=== PATIENT | female | born 1990 | race Two or more races ===

== ENCOUNTER 2018-12-26 11:46 | Emergency (ER) | payer MEDICAID ==
[~2018-12-26] VITALS: Ht 167.6 cm; Wt 140.0 kg
[2018-12-26] MEDS ORDERED: ARIPIPRAZOLE 10MG TABLET PO ONE (13:00)
[2018-12-26] MEDS ORDERED: ARIPIPRAZOLE 5MG TABLET PO ONE (13:15)
[2018-12-26 13:56] LABS: BASOPHILS % 0.4 % (0.0-2.0); EOSINOPHILS % 0.8 % (0.0-5.0); HEMATOCRIT. 34.8 % (36.0-48.0); HEMOGLOBIN. 11.3 g/dL (12.0-16.0); LYMPHOCYTES % 30.6 % (20.0-50.0); MEAN CORPUSCULAR HEMOGLOBIN 27.1 pg (28.0-32.0); MEAN CORPUSCULAR VOLUME 83.3 fL (81.0-99.0); MONOCYTES % 3.6 % (2.0-8.0); NEUTROPHILS % 64.6 % (40.0-76.0); PLATELET 266 x1000/uL (130-400); RED BLOOD CELL COUNT 4.18 mill/uL (4.2-5.4); RED CELL DISTRIBUTION WIDTH 17.3 % (11.6-14.6)
[2018-12-26 14:05] LABS: CHLORIDE 107 mEq/L (98-107)
[2018-12-26 14:11] LABS: ETHANOL BLOOD < 10 mg/dL
[2018-12-26 14:45] LABS: CLARITY URINE CLEAR (CLEAR); COLOR URINE YELLOW (YELLOW); KETONES URINE 1+ (NEGATIVE); LEUKOCYTE ESTERASE URINE NEGATIVE (NEGATIVE); NITRITE URINE NEGATIVE (NEGATIVE); OCCULT BLOOD URINE NEGATIVE (NEGATIVE); PH URINE 6.5 (4.5-8.0); PROTEIN URINE NEGATIVE (NEGATIVE); SPECIFIC GRAVITY URINE 1.028 (1.005-1.030); UROBILINOGEN URINE 0.2 E.U./dL (0.2-1.0)
[2018-12-26 15:19] LABS: *COCAINE SCREEN URINE NEGATIVE (NEGATIVE); METHADONE URINE SCREEN NEGATIVE (NEGATIVE); PHENCYCLIDINE URINE SCREEN NEGATIVE (NEGATIVE)
[2018-12-26 15:20] LABS: *AMPHETAMINES SCREEN URINE NEGATIVE (NEGATIVE); *BARBITURATES SCREEN URINE NEGATIVE (NEGATIVE); *BENZODIAZEPINES SCREEN URINE NEGATIVE (NEGATIVE)
[2018-12-26 15:27] LABS: CANNABINOID URINE SCREEN PRESUMTIVE POSITIVE (NEGATIVE); OPIATES URINE SCREEN PRESUMTIVE POSITIVE (NEGATIVE)
[2018-12-27] MEDS ORDERED: ARIPIPRAZOLE 10MG TABLET PO ONE (10:00)
[2018-12-27] MEDS ORDERED: ARIPIPRAZOLE 5MG TABLET PO NR (10:30)
[2018-12-27 13:03] VITALS: BP 129/74
== END 2018-12-27 13:35 | disposition home or self-care (01) ==
LOC: ER 11:46
DX: F32.9 Major depressive disorder, single episode, unspecified (principal); R45.851 Suicidal ideations; F12.10 Cannabis abuse, uncomplicated; Z87.19 Personal history of other diseases of the digestive system; Z88.8 Allergy status to other drugs, medicaments and biological substances; Z88.6 Allergy status to analgesic agent
CPT/HCPCS: 36415; 80165; 80305; 80307; 80320; 80329; 99284; G0480

== ENCOUNTER 2019-01-06 11:08 | Emergency (ER) | payer MEDICAID ==
[~2019-01-06] VITALS: Ht 167.6 cm; Wt 138.0 kg
[2019-01-06] MEDS ORDERED: SODIUM CHLORIDE 0.9% 1,000 ML IV ONE (12:00)
[2019-01-06] MEDS ORDERED: ONDANSETRON HCL 4MG/2ML INJ IV ONE (12:00)
[2019-01-06 13:28] LABS: BASOPHILS % 0.2 % (0.0-2.0); EOSINOPHILS % 0.2 % (0.0-5.0); HEMATOCRIT. 32.4 % (36.0-48.0); HEMOGLOBIN. 10.7 g/dL (12.0-16.0); LYMPHOCYTES % 13.7 % (20.0-50.0); MEAN CORPUSCULAR HEMOGLOBIN 26.7 pg (28.0-32.0); MEAN PLATELET VOLUME 8.5 fl (7.4-10.4); MONOCYTES % 4.3 % (2.0-8.0); NEUTROPHILS % 81.6 % (40.0-76.0); PLATELET 258 x1000/uL (130-400); RED BLOOD CELL COUNT 4.01 mill/uL (4.2-5.4); RED CELL DISTRIBUTION WIDTH 16.9 % (11.6-14.6)
[2019-01-06 13:30] LABS: CHLORIDE 112 mEq/L (98-107)
[2019-01-06] MEDS ORDERED: FENTANYL CITRATE/PF 50MCG/ML 2ML VIAL IV ONE (14:15)
[2019-01-06 14:33] LABS: *AMPHETAMINES SCREEN URINE NEGATIVE (NEGATIVE); *BARBITURATES SCREEN URINE NEGATIVE (NEGATIVE); *BENZODIAZEPINES SCREEN URINE NEGATIVE (NEGATIVE); *COCAINE SCREEN URINE NEGATIVE (NEGATIVE); METHADONE URINE SCREEN NEGATIVE (NEGATIVE)
[2019-01-06 14:34] LABS: PHENCYCLIDINE URINE SCREEN NEGATIVE (NEGATIVE)
[2019-01-06 14:37] LABS: OPIATES URINE SCREEN PRESUMTIVE POSITIVE (NEGATIVE)
[2019-01-06 14:38] LABS: CANNABINOID URINE SCREEN PRESUMTIVE POSITIVE (NEGATIVE)
[2019-01-06 15:49] LABS: ETHANOL BLOOD < 10 mg/dL
[2019-01-07] MEDS: LAMOTRIGINE 100MG TABLET PO SCH (13:30)
[2019-01-07] MEDS: DIVALPROEX SODIUM 250MG DR TABLET PO SCH (13:30)
[2019-01-07] MEDS ORDERED: ONDANSETRON HCL 4MG/2ML INJ IV ONE (22:15)
[2019-01-07] MEDS ORDERED: MORPHINE SULFATE 4 MG/ML CPJ (NOT FOR IM USE) IV ONE (22:15)
[2019-01-08] MEDS ORDERED: LORAZEPAM 0.5MG TABLET PO ONE (07:45)
[2019-01-08] MEDS: LAMOTRIGINE 100MG TABLET PO SCH (07:56)
[2019-01-08] MEDS: DIVALPROEX SODIUM 250MG DR TABLET PO SCH ×2 (07:56→17:00)
[2019-01-09 00:15] VITALS: BP 109/69
== END 2019-01-09 02:14 | disposition home or self-care (01) ==
LOC: ER 11:08
DX: R10.12 Left upper quadrant pain (principal); F32.9 Major depressive disorder, single episode, unspecified; G89.29 Other chronic pain; F12.10 Cannabis abuse, uncomplicated; R45.851 Suicidal ideations; D64.9 Anemia, unspecified; E66.01 Morbid (severe) obesity due to excess calories; Z68.42 Body mass index [BMI] 45.0-49.9, adult; Z87.19 Personal history of other diseases of the digestive system; Z90.49 Acquired absence of other specified parts of digestive tract; Z90.89 Acquired absence of other organs; Z98.890 Other specified postprocedural states; Z88.5 Allergy status to narcotic agent; Z88.6 Allergy status to analgesic agent; Z88.8 Allergy status to other drugs, medicaments and biological substances
CPT/HCPCS: 36415; 71045; 80053; 80305; 80307; 80320; 83690; 83880; 84484; 85025; 93005; 96361; 96374; 96375; 99284; J2405; J3010; J7030; G0480

== ENCOUNTER 2019-01-15 09:56 | Emergency (ER) | payer MEDICAID ==
[~2019-01-15] VITALS: Ht 167.6 cm; Wt 136.8 kg
[2019-01-15] MEDS ORDERED: ONDANSETRON HCL 4MG/2ML INJ IV STA (10:46)
[2019-01-15] MEDS ORDERED: SODIUM CHLORIDE 0.9% 1,000 ML IV ONE (10:46)
[2019-01-15] MEDS ORDERED: MORPHINE SULFATE 4 MG/ML CPJ (NOT FOR IM USE) IV STA (10:46)
[2019-01-15 11:15] LABS: BASOPHILS % 0.3 % (0.0-2.0); EOSINOPHILS % 0.3 % (0.0-5.0); LYMPHOCYTES % 14.1 % (20.0-50.0); MEAN CORPUSCULAR HEMOGLOBIN 27.1 pg (28.0-32.0); MEAN CORPUSCULAR VOLUME 81.7 fL (81.0-99.0); MEAN PLATELET VOLUME 9.1 fl (7.4-10.4); MONOCYTES % 2.7 % (2.0-8.0); NEUTROPHILS % 82.6 % (40.0-76.0); PLATELET 260 x1000/uL (130-400); RED BLOOD CELL COUNT 4.41 mill/uL (4.2-5.4); RED CELL DISTRIBUTION WIDTH 16.8 % (11.6-14.6)
[2019-01-15 11:20] LABS: CHLORIDE 109 mEq/L (98-107)
[2019-01-15 11:21] LABS: CLARITY URINE CLOUDY (CLEAR); COLOR URINE ORANGE (YELLOW); KETONES URINE TRACE (NEGATIVE); LEUKOCYTE ESTERASE URINE 1+ (NEGATIVE); NITRITE URINE NEGATIVE (NEGATIVE); OCCULT BLOOD URINE 3+ (NEGATIVE); PH URINE 6.5 (4.5-8.0); PROTEIN URINE 2+ (NEGATIVE)
[2019-01-15 11:42] LABS: *AMPHETAMINES SCREEN URINE NEGATIVE (NEGATIVE)
[2019-01-15 11:43] LABS: *BARBITURATES SCREEN URINE NEGATIVE (NEGATIVE); *BENZODIAZEPINES SCREEN URINE NEGATIVE (NEGATIVE); *COCAINE SCREEN URINE NEGATIVE (NEGATIVE); CANNABINOID URINE SCREEN NEGATIVE (NEGATIVE); METHADONE URINE SCREEN NEGATIVE (NEGATIVE); OPIATES URINE SCREEN NEGATIVE (NEGATIVE); PHENCYCLIDINE URINE SCREEN NEGATIVE (NEGATIVE)
[2019-01-15] MEDS ORDERED: ACETAMINOPHEN WITH CODEINE 300/30MG TABLET PO ONE (12:15)
[2019-01-15 12:22] VITALS: BP 148/86
== END 2019-01-15 12:25 | disposition home or self-care (01) ==
LOC: ER 09:56
DX: N30.00 Acute cystitis without hematuria (principal); D64.9 Anemia, unspecified; F17.200 Nicotine dependence, unspecified, uncomplicated; Z87.440 Personal history of urinary (tract) infections; Z87.442 Personal history of urinary calculi; Z87.19 Personal history of other diseases of the digestive system; Z90.49 Acquired absence of other specified parts of digestive tract; Z98.890 Other specified postprocedural states; Z88.8 Allergy status to other drugs, medicaments and biological substances; Z88.6 Allergy status to analgesic agent
CPT/HCPCS: 36415; 74176; 80053; 80305; 81003; 81025; 83690; 85025; 96361; 96374; 96375; 99284; J2270; J2405; J7030

== ENCOUNTER 2019-01-24 09:38 | Emergency (ER) | payer MEDICAID ==
[~2019-01-24] VITALS: Ht 167.6 cm; Wt 138.0 kg
[2019-01-24] MEDS ORDERED: DIVA500T3 PO (10:10)
[2019-01-24] MEDS ORDERED: SERT100T PO (10:10)
[2019-01-24] MEDS ORDERED: ONDANSETRON HCL 4MG/2ML INJ IV STA (11:16)
[2019-01-24] MEDS ORDERED: MORPHINE SULFATE 4 MG/ML CPJ (NOT FOR IM USE) IV STA (11:16)
[2019-01-24 11:48] LABS: BASOPHILS % 0.4 % (0.0-2.0); EOSINOPHILS % 0.8 % (0.0-5.0); HEMATOCRIT. 33.9 % (36.0-48.0); HEMOGLOBIN. 11.2 g/dL (12.0-16.0); LYMPHOCYTES % 19.8 % (20.0-50.0); MEAN CORPUSCULAR HEMOGLOBIN 27.1 pg (28.0-32.0); MEAN CORPUSCULAR VOLUME 82.4 fL (81.0-99.0); MONOCYTES % 5.3 % (2.0-8.0); NEUTROPHILS % 73.7 % (40.0-76.0); RED BLOOD CELL COUNT 4.11 mill/uL (4.2-5.4); RED CELL DISTRIBUTION WIDTH 16.7 % (11.6-14.6)
[2019-01-24 11:50] LABS: CHLORIDE 108 mEq/L (98-107)
[2019-01-24 11:54] LABS: ETHANOL BLOOD < 10 mg/dL
[2019-01-24 12:20] LABS: CLARITY URINE CLOUDY (CLEAR); COLOR URINE YELLOW (YELLOW); KETONES URINE TRACE (NEGATIVE); LEUKOCYTE ESTERASE URINE NEGATIVE (NEGATIVE); NITRITE URINE NEGATIVE (NEGATIVE); OCCULT BLOOD URINE NEGATIVE (NEGATIVE); PROTEIN URINE NEGATIVE (NEGATIVE); SPECIFIC GRAVITY URINE 1.024 (1.005-1.030); UROBILINOGEN URINE 0.2 E.U./dL (0.2-1.0)
[2019-01-24 12:31] LABS: PLATELET 276 x1000/uL (130-400)
[2019-01-24 12:32] LABS: CANNABINOID URINE SCREEN NEGATIVE (NEGATIVE); PHENCYCLIDINE URINE SCREEN NEGATIVE (NEGATIVE)
[2019-01-24 12:33] LABS: *AMPHETAMINES SCREEN URINE NEGATIVE (NEGATIVE); *BARBITURATES SCREEN URINE NEGATIVE (NEGATIVE); *BENZODIAZEPINES SCREEN URINE NEGATIVE (NEGATIVE); *COCAINE SCREEN URINE NEGATIVE (NEGATIVE); METHADONE URINE SCREEN NEGATIVE (NEGATIVE); OPIATES URINE SCREEN NEGATIVE (NEGATIVE)
[2019-01-24] MEDS ORDERED: TRAMADOL 50MG TABLET PO ONE (14:00)
[2019-01-24 15:38] VITALS: BP 145/87
== END 2019-01-24 15:41 | disposition home or self-care (01) ==
LOC: ER 09:38
DX: R45.851 Suicidal ideations (principal); R56.9 Unspecified convulsions
CPT/HCPCS: 36415; 70450; 71045; 80053; 80165; 80305; 80320; 81003; 81025; 85025; 85610; 96374; 96375; 99284; J2270; J2405; G0480

== ENCOUNTER 2019-01-30 08:48 | Emergency (ER) | payer MEDICAID ==
[~2019-01-30] VITALS: Ht 172.7 cm; Wt 115.0 kg
[~2019-01-30 08:48] MED LIST: DIVA500T3 PO; SERT100T PO
[2019-01-30 09:53] LABS: CLARITY URINE CLOUDY (CLEAR); COLOR URINE YELLOW (YELLOW); KETONES URINE TRACE (NEGATIVE); LEUKOCYTE ESTERASE URINE TRACE (NEGATIVE); NITRITE URINE NEGATIVE (NEGATIVE); OCCULT BLOOD URINE 3+ (NEGATIVE); PROTEIN URINE 1+ (NEGATIVE); UROBILINOGEN URINE 0.2 E.U./dL (0.2-1.0)
[2019-01-30 10:14] LABS: *AMPHETAMINES SCREEN URINE NEGATIVE (NEGATIVE)
[2019-01-30 10:15] LABS: *BARBITURATES SCREEN URINE NEGATIVE (NEGATIVE); *BENZODIAZEPINES SCREEN URINE NEGATIVE (NEGATIVE); *COCAINE SCREEN URINE NEGATIVE (NEGATIVE); CANNABINOID URINE SCREEN NEGATIVE (NEGATIVE); METHADONE URINE SCREEN NEGATIVE (NEGATIVE); OPIATES URINE SCREEN NEGATIVE (NEGATIVE); PHENCYCLIDINE URINE SCREEN NEGATIVE (NEGATIVE)
[2019-01-30 10:28] LABS: CHLORIDE 107 mEq/L (98-107)
[2019-01-30 10:29] LABS: BASOPHILS % 0.6 % (0.0-2.0); EOSINOPHILS % 0.9 % (0.0-5.0); HEMATOCRIT. 30.5 % (36.0-48.0); HEMOGLOBIN. 10.2 g/dL (12.0-16.0); LYMPHOCYTES % 17.8 % (20.0-50.0); MEAN CORPUSCULAR HEMOGLOBIN 27.6 pg (28.0-32.0); MEAN CORPUSCULAR VOLUME 82.2 fL (81.0-99.0); NEUTROPHILS % 76.7 % (40.0-76.0); RED BLOOD CELL COUNT 3.71 mill/uL (4.2-5.4); RED CELL DISTRIBUTION WIDTH 16.9 % (11.6-14.6)
[2019-01-30 10:33] LABS: ETHANOL BLOOD < 10 mg/dL
[2019-01-30 11:06] LABS: PLATELET 178 x1000/uL (130-400)
[2019-01-30] MEDS ORDERED: ACETAMINOPHEN 325MG TABLET PO ONE (11:15)
[2019-01-30 12:04] VITALS: BP 126/83
== END 2019-01-30 12:07 | disposition home or self-care (01) ==
LOC: ER 08:48
DX: G40.909 Epilepsy, unspecified, not intractable, without status epilepticus (principal); N39.0 Urinary tract infection, site not specified; F31.9 Bipolar disorder, unspecified; F12.10 Cannabis abuse, uncomplicated; Z88.8 Allergy status to other drugs, medicaments and biological substances; Z90.49 Acquired absence of other specified parts of digestive tract
CPT/HCPCS: 36415; 80305; 80320; 81003; 81025; 82962; 99283; G0480

== ENCOUNTER 2019-01-31 08:54 | Emergency (ER) | payer MEDICAID ==
[~2019-01-31] VITALS: Ht 175.3 cm; Wt 135.0 kg
[2019-01-31 09:42] LABS: BASOPHILS % 0.4 % (0.0-2.0); EOSINOPHILS % 0.7 % (0.0-5.0); HEMATOCRIT. 30.2 % (36.0-48.0); HEMOGLOBIN. 9.9 g/dL (12.0-16.0); LYMPHOCYTES % 16.5 % (20.0-50.0); MEAN PLATELET VOLUME 7.8 fl (7.4-10.4); MONOCYTES % 4.3 % (2.0-8.0); NEUTROPHILS % 78.1 % (40.0-76.0); PLATELET 215 x1000/uL (130-400); RED BLOOD CELL COUNT 3.68 mill/uL (4.2-5.4); RED CELL DISTRIBUTION WIDTH 16.7 % (11.6-14.6)
[2019-01-31 09:47] LABS: CHLORIDE 107 mEq/L (98-107)
[2019-01-31 09:51] LABS: HCG SCREEN NEGATIVE
[2019-01-31 09:52] LABS: ETHANOL BLOOD < 10 mg/dL
[2019-01-31 10:18] LABS: CLARITY URINE CLEAR (CLEAR); COLOR URINE YELLOW (YELLOW); KETONES URINE TRACE (NEGATIVE); LEUKOCYTE ESTERASE URINE NEGATIVE (NEGATIVE); NITRITE URINE NEGATIVE (NEGATIVE); OCCULT BLOOD URINE 2+ (NEGATIVE); PROTEIN URINE NEGATIVE (NEGATIVE); UROBILINOGEN URINE 0.2 E.U./dL (0.2-1.0)
[2019-01-31] MEDS ORDERED: ACETAMINOPHEN 325MG TABLET PO ONE (10:30)
[2019-01-31 10:39] LABS: *AMPHETAMINES SCREEN URINE NEGATIVE (NEGATIVE); *BARBITURATES SCREEN URINE NEGATIVE (NEGATIVE); *BENZODIAZEPINES SCREEN URINE NEGATIVE (NEGATIVE); *COCAINE SCREEN URINE NEGATIVE (NEGATIVE); METHADONE URINE SCREEN NEGATIVE (NEGATIVE); OPIATES URINE SCREEN NEGATIVE (NEGATIVE)
[2019-01-31 10:40] LABS: CANNABINOID URINE SCREEN NEGATIVE (NEGATIVE); PHENCYCLIDINE URINE SCREEN NEGATIVE (NEGATIVE)
[2019-01-31 12:15] VITALS: BP 140/80
== END 2019-01-31 12:28 | disposition home or self-care (01) ==
LOC: ER 08:54
DX: R56.9 Unspecified convulsions (principal); F31.9 Bipolar disorder, unspecified; F12.10 Cannabis abuse, uncomplicated; Z87.440 Personal history of urinary (tract) infections; Z90.49 Acquired absence of other specified parts of digestive tract; Z98.890 Other specified postprocedural states; Z88.9 Allergy status to unspecified drugs, medicaments and biological substances; Z88.6 Allergy status to analgesic agent; Z88.8 Allergy status to other drugs, medicaments and biological substances; Z79.899 Other long term (current) drug therapy
CPT/HCPCS: 36415; 80305; 80320; 81003; 84703; 99283; G0480

== ENCOUNTER 2019-02-02 09:07 | Inpatient (IN) | payer MEDICAID ==
[~2019-02-02] VITALS: Ht 167.6 cm; Wt 149.2 kg
[2019-02-02] MEDS ORDERED: MORPHINE SULFATE 4 MG/ML CPJ (NOT FOR IM USE) IV STA (09:44)
[2019-02-02] MEDS ORDERED: ONDANSETRON HCL 4MG/2ML INJ IV STA (09:44)
[2019-02-02] MEDS ORDERED: SODIUM CHLORIDE 0.9% 1,000 ML IV ONE (09:44)
[2019-02-02 10:43] LABS: CLARITY URINE CLOUDY (CLEAR); COLOR URINE YELLOW (YELLOW); KETONES URINE TRACE (NEGATIVE); LEUKOCYTE ESTERASE URINE TRACE (NEGATIVE); NITRITE URINE NEGATIVE (NEGATIVE); OCCULT BLOOD URINE 3+ (NEGATIVE); PH URINE 6.5 (4.5-8.0); PROTEIN URINE 1+ (NEGATIVE); SPECIFIC GRAVITY URINE 1.028 (1.005-1.030)
[2019-02-02 11:06] LABS: *AMPHETAMINES SCREEN URINE NEGATIVE (NEGATIVE); *BARBITURATES SCREEN URINE NEGATIVE (NEGATIVE); *BENZODIAZEPINES SCREEN URINE NEGATIVE (NEGATIVE); *COCAINE SCREEN URINE NEGATIVE (NEGATIVE); CANNABINOID URINE SCREEN NEGATIVE (NEGATIVE); METHADONE URINE SCREEN NEGATIVE (NEGATIVE); OPIATES URINE SCREEN NEGATIVE (NEGATIVE); PHENCYCLIDINE URINE SCREEN NEGATIVE (NEGATIVE)
[2019-02-02 13:30] LABS: BASOPHILS % 0.4 % (0.0-2.0); EOSINOPHILS % 0.2 % (0.0-5.0); HEMATOCRIT. 33.8 % (36.0-48.0); HEMOGLOBIN. 11.1 g/dL (12.0-16.0); LYMPHOCYTES % 17.7 % (20.0-50.0); MEAN CORPUSCULAR HEMOGLOBIN 26.8 pg (28.0-32.0); MEAN CORPUSCULAR VOLUME 81.7 fL (81.0-99.0); MEAN PLATELET VOLUME 7.8 fl (7.4-10.4); MONOCYTES % 6.4 % (2.0-8.0); NEUTROPHILS % 75.3 % (40.0-76.0); PLATELET 248 x1000/uL (130-400); RED BLOOD CELL COUNT 4.14 mill/uL (4.2-5.4); RED CELL DISTRIBUTION WIDTH 16.8 % (11.6-14.6)
[2019-02-02 13:34] LABS: CHLORIDE 108 mEq/L (98-107)
[2019-02-02 13:38] LABS: ETHANOL BLOOD < 10 mg/dL
[2019-02-02 13:42] LABS: CREATINE KINASE 85 IU/L (26-192)
[2019-02-02 13:45] LABS: PARTIAL THROMBOPLASTIN TIME 27.1 sec (23.4-31.0); PROTHROMBIN TIME 10.5 sec (9.6-11.0)
[2019-02-02 13:46] LABS: B-HCG QUANTITATIVE < 1 mIU/mL (<3)
[2019-02-02] MEDS ORDERED: ONDANSETRON HCL 4MG/2ML INJ IV ONE (14:00)
[2019-02-02] MEDS ORDERED: MORPHINE SULFATE 4 MG/ML CPJ (NOT FOR IM USE) IV ONE (14:00)
[2019-02-02 16:30] VITALS: BP 140/60
[2019-02-02 17:00] VITALS: BP 122/69
[2019-02-02] MEDS ORDERED: CEFTRIAXONE 1 G PREMIX 50 ML IV ONE (17:00)
[2019-02-02 17:05] VITALS: BP 120/69
[2019-02-02 18:00] VITALS: BP 130/66
[2019-02-02] MEDS ORDERED: PNEUMOCOCCAL 23-VAL P-SAC VAC 0.5 ML IM ONE (18:45)
[2019-02-02] MEDS ORDERED: ACETAMINOPHEN 650MG SUPP PR PRN (19:00)
[2019-02-02] MEDS ORDERED: ACETAMINOPHEN 325MG TABLET PO PRN (19:00)
[2019-02-02] MEDS ORDERED: DOCUSATE SODIUM 100MG CAPSULE PO PRN (19:00)
[2019-02-02] MEDS ORDERED: NA PHOS,M-B/NA PHOS,DI-BA ENEMA 118ML PR PRN (19:00)
[2019-02-02] MEDS ORDERED: MAGNESIUM/ALUMINUM HYDROXIDE/SIMETHICONE 30ML UDC PO PRN (19:00)
[2019-02-02] MEDS ORDERED: CLONIDINE 0.1MG TABLET PO PRN (19:00)
[2019-02-02] MEDS ORDERED: ACETAMINOPHEN 650MG/20.3ML UDC GT PRN (19:00)
[2019-02-02] MEDS ORDERED: DIPHENHYDRAMINE 50MG/ML VIAL IV PRN (19:00)
[2019-02-02] MEDS ORDERED: IPRATROPIUM/ALBUTEROL 0.5-3(2.5)MG/3ML NEB HHN PRN (19:00)
[2019-02-02] MEDS ORDERED: ONDANSETRON HCL 4MG/2ML INJ IV PRN (19:00)
[2019-02-02] MEDS ORDERED: GUAIFENESIN 200MG/10ML SUGAR FREE UDC PO PRN (19:00)
[2019-02-02 20:00] VITALS: BP 109/67
[2019-02-02] MEDS ORDERED: MEDICATION NOT ON FORMULARY EA (Divalproex Sodium (Depakote) 500 MG) PO SCH (20:00)
[2019-02-02] MEDS: ENOXAPARIN 40MG/0.4ML SYR SUBCUT SCH (20:52)
[2019-02-02] MEDS: HYDROCODONE/ACETAMINOPHEN 5/325MG TABLET PO PRN (20:54)
[2019-02-02] MEDS: SERTRALINE HCL 100MG TABLET PO SCH (20:54)
[2019-02-02] MEDS: SODIUM CHLORIDE 0.45% 1,000 ML IV SCH (21:09)
[2019-02-02] MEDS: SODIUM CHLORIDE 0.9% INJ 3ML FLUSH IVF SCH (22:08)
[2019-02-02] MEDS: LAMOTRIGINE 150MG TABLET PO SCH (23:30)
[2019-02-03] VITALS (7 sets, daily range): BP systolic 98–126; BP diastolic 51–78
[2019-02-03] MEDS: HYDROCODONE/ACETAMINOPHEN 5/325MG TABLET PO PRN ×2 (05:22→09:49)
[2019-02-03] MEDS: SODIUM CHLORIDE 0.9% INJ 3ML FLUSH IVF SCH ×3 (05:22→22:07)
[2019-02-03 08:52] LABS: CHLORIDE 108 mEq/L (98-107)
[2019-02-03 08:53] LABS: BASOPHILS % 0.3 % (0.0-2.0); EOSINOPHILS % 0.9 % (0.0-5.0); HEMATOCRIT. 29.7 % (36.0-48.0); HEMOGLOBIN. 9.7 g/dL (12.0-16.0); LYMPHOCYTES % 25.5 % (20.0-50.0); MEAN CORPUSCULAR VOLUME 82.7 fL (81.0-99.0); MEAN PLATELET VOLUME 7.8 fl (7.4-10.4); MONOCYTES % 6.7 % (2.0-8.0); NEUTROPHILS % 66.6 % (40.0-76.0); PLATELET 233 x1000/uL (130-400); RED CELL DISTRIBUTION WIDTH 16.4 % (11.6-14.6)
[2019-02-03 09:00] LABS: LDL CHOLESTEROL 108 mg/dL (5-100)
[2019-02-03 09:04] LABS: HDL CHOLESTEROL 49 mg/dL (40-59)
[2019-02-03] MEDS: SERTRALINE HCL 100MG TABLET PO SCH ×2 (09:48→19:24)
[2019-02-03] MEDS: LAMOTRIGINE 150MG TABLET PO SCH ×2 (09:49→22:06)
[2019-02-03] MEDS: ENOXAPARIN 40MG/0.4ML SYR SUBCUT SCH ×2 (09:51→22:06)
[2019-02-03] MEDS ORDERED: LEVO500T2 MT (13:11)
[2019-02-03] MEDS ORDERED: LAM15 PO (13:11)
[2019-02-03] MEDS ORDERED: HYDROCODONE/ACETAMINOPHEN 10/325MG TABLET PO SCH (13:15)
[2019-02-03] MEDS ORDERED: CEFTRIAXONE 1 G PREMIX 50 ML IV SCH (15:00)
[2019-02-03] MEDS: DIVALPROEX SODIUM 250MG DR TABLET PO SCH (19:24)
[2019-02-04] VITALS: BP 112/72
[2019-02-04 04:00] VITALS: BP 109/41
[2019-02-04 07:02] LABS: BASOPHILS % 0.3 % (0.0-2.0); EOSINOPHILS % 0.7 % (0.0-5.0); HEMOGLOBIN. 9.9 g/dL (12.0-16.0); LYMPHOCYTES % 25.7 % (20.0-50.0); MEAN CORPUSCULAR HEMOGLOBIN 27.1 pg (28.0-32.0); MEAN CORPUSCULAR VOLUME 81.9 fL (81.0-99.0); NEUTROPHILS % 65.3 % (40.0-76.0); PLATELET 222 x1000/uL (130-400); RED BLOOD CELL COUNT 3.66 mill/uL (4.2-5.4); RED CELL DISTRIBUTION WIDTH 16.2 % (11.6-14.6)
[2019-02-04 07:06] LABS: CHLORIDE 107 mEq/L (98-107)
[2019-02-04 07:22] LABS: TOTAL IRON BINDING CAPACITY 451 ug/dL (250-450)
[2019-02-04 07:27] LABS: FOLIC ACID (FOLATE) SERUM 12.4 ng/mL (>5.38)
[2019-02-04 08:00] VITALS: BP 128/89
[2019-02-04] MEDS: SODIUM CHLORIDE 0.9% INJ 3ML FLUSH IVF SCH ×2 (09:50→13:02)
[2019-02-04] MEDS: SODIUM CHLORIDE 0.45% 1,000 ML IV SCH ×2 (09:50→09:53)
[2019-02-04] MEDS ORDERED: FERR236T3 MT (09:50)
[2019-02-04] MEDS: ENOXAPARIN 40MG/0.4ML SYR SUBCUT SCH (09:51)
[2019-02-04] MEDS: SERTRALINE HCL 100MG TABLET PO SCH (09:51)
[2019-02-04] MEDS: DIVALPROEX SODIUM 250MG DR TABLET PO SCH ×2 (09:51→12:52)
[2019-02-04 12:00] VITALS: BP 130/82
[2019-02-04 12:44] VITALS: BP 130/82
[2019-02-04] MEDS: LAMOTRIGINE 150MG TABLET PO SCH (12:53)
== END 2019-02-04 14:36 | disposition home or self-care (01) | DRG 463 ==
LOC: ER 09:07 → 8WST 15:01 → EDBEDREQ 15:04 → ENRESERV 15:32 → 5WST 02-04 06:18
PROVIDERS: ADMIT Family Medicine; ATTEND Family Medicine
DX: N39.0 Urinary tract infection, site not specified (principal); E66.01 Morbid (severe) obesity due to excess calories; F17.200 Nicotine dependence, unspecified, uncomplicated; N93.9 Abnormal uterine and vaginal bleeding, unspecified; F17.210 Nicotine dependence, cigarettes, uncomplicated; G43.909 Migraine, unspecified, not intractable, without status migrainosus; G40.909 Epilepsy, unspecified, not intractable, without status epilepticus; F31.9 Bipolar disorder, unspecified; Z79.899 Other long term (current) drug therapy; Z90.49 Acquired absence of other specified parts of digestive tract; Z68.43 Body mass index [BMI] 50.0-59.9, adult
CPT/HCPCS: 36415; 74018; 74176; 76830; 76856; 80048; 80061; 80165; 80305; 80320; 81003; 82542; 82550; 82607; 82728; 82746; 83540; 83550; 83880; 84484; 84702; 86850; 86900; 93005; 99285; 99406; J0696; J1650; J2270; J2405; J7030; G0480